=== PATIENT | female | born 1995 | race Caucasian/White ===

== ENCOUNTER 2019-05-05 17:38 | Inpatient (IN) | payer OTHER ==
[2019-05-05] VITALS (20 sets, daily range): BP systolic 99–138; BP diastolic 52–118
[~2019-05-05] VITALS: Ht 172.7 cm; Wt 98.9 kg
[2019-05-05] MEDS ORDERED: VALT500T PO (17:53)
[2019-05-05] MEDS ORDERED: PRENTAB9 PO (17:53)
[2019-05-05] MEDS ORDERED: LACTATED RINGER'S 1000 ML IV PRN ×2 (18:15→22:45)
[2019-05-05] MEDS ORDERED: LR 1,000 ML IV SCH (18:15)
[2019-05-05] MEDS ORDERED: OXYTOCIN DRIP 30 UNITS in APPROPRIATE DILUENT 1 EA IV SCH (18:30)
--- NOTE | 2019-05-05 18:39 | HPEPDOC ---
Obstetrical History & Physical General Date of Admission May 05, 2019 at 17:38 History of Present Illness 24yo at 41w0d by 8wk US, presents for scheduled IOL for post-dates. Feel s well overall without complaints. Denies ctx, vb, lof, urinary/bowel symptom, abd pain, SOB, fevers. +FM. Chief Complaint: Induction of labor Information Provided By: Patient Age: 24 : 2 Term: 1 Pre-term: 0 Abortions: 0 Livin Care Care: Good Care Dating Final EDC: Apr 28, 2019 Final EDC for Daily Update: Apr 28, 2019 Final EDC by: 1st trimester (US) Estimated Date of Confinement: Apr 28, 2019 Antepartum Course Diagnos(e)s Short-interval Obesity Hx genital HSV Height (inches): 68 Pre- weight (lbs.): 167 Admission Weight (lbs.): 216 Change in Weight (lbs.): 49 Past Medical History Past Obstetrical History : Past Obstetrical History: Multigravida Date of Delivery: Mar 05, 2018 Gestation: 39 Type of Delivery: Spontaneous Vaginal Del. 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) Past Medical History Medical History Denies Surgical History: Denies/None Family History Significant Family History: No pertinent family hx Social History Marital Status: Family situation: Spouse/partner home Psychosocial History: No pertinent psych hx * Smoker: non-smoker Alcohol: Denies Drugs: denies Imunizations Tdap status: current Influenza Status: current Allergies Coded Allergies: No Known Allergies (Verified Allergy, Unknown, 05/05/19) Medications Scheduled No.137/Iron/Folic Acd ( Vitamin Tablet) 1 Each Tablet, 1 TAB PO DAILY Valacyclovir HCl (Valtrex) 500 Mg Tablet, 500 MG PO DAILY Physical Examination Physical Examination GENERAL: Alert and oriented times three. BREAST: . ABDOMEN: Gravid and non-tender to touch. FETUS: Is vertex VTX by sterile vaginal examination (SVE) and US. EXTREMITIES: +1 pedal edema bilaterally. SPEC: NEFG, no HSV lesions present Laboratory Data [facility] Laboratory Tests 2 05/05/19 17:55: Serology Scanned Report Hepatitis B Testing Pertinent Laboratoy Data Blood Type: A+ RBC Antibody Screen: Negative HIV: Negative Hepatitis B: Negative Hepatitis C: Unknown Rapid Plasma Reagin: Nonreactive Rubella: Immune Varicella: Immune Chlamydia/Gonorrhea: Negative Group B Streptococcus: Negative Quad Screen Test: Declined Cystic Fibrosis: Declined Glucose Tolerance Test: 125 Anatomy Ultrasound Ultrasound Date: Dec 11, 2018 Placenta Location: Anterior Normal Anatomy: Yes Placenta Previa: No Estimated Weight (grams): 346 Steroid Therapy Steroid Therapy: No Vaginal Examination Dilation: 3 cm Effacement: 50% Station: -3 Cervical Consistency: Medium Cervical Position: Middle Presentation: Cephalic presentation Position: Vertex (occiput) Assessment Heart Rate (FHR): 140 Variability: Moderate Accelerations: Positive Decelerations: None Tocometer Contractions: Yes Frequency: irregular Duration: less than 60 seconds Strength: palpated as mild Multi-drug resistant Organism: No history of MDRO Assessment/Plan Assessment Toma is a 24-year-old at 41+0 weeks by 8-week ultrasound here for IOL for LTG. PNC c/b obesity and short interval . Pelvis proven to 3900g, EFW 4000g. PMH/PSH non-contrib. NST reactive with irreg contractions. Vitals wnl, benign physical exam and no HSV lesions seen on speculum exam. SCE 3/50/-3. Cook catheter with 60cc placed. Plan Admit and orient. 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 Diet: clear liquids. Group B Streptococcus (GBS) negative. Labs and intravenous (IV) per unit protocol. Counseled on Pitocin and induction of labor (IOL). IOL to be started with FB and pitocin. Lactated Ringers (LR): at 125 mL/hr. Anticipate normal spontaneous delivery (). MD ALMA Sams TONI M. MD May 05, 2019 18:39
[2019-05-05 18:52] LABS: BASO % 0.1 % (0.0-1.0); EOS % 0.3 % (0.0-3.0); HEMOGLOBIN 12.7 g/dl (12.0-15.5); LYMPH # 2.1 10^3/uL (1.5-6.5); LYMPH % 21.9 % (24.0-44.0); MEAN CORPUSCULAR HEMOGLOBIN 32.5 pg (27.0-33.0); MEAN CORPUSCULAR HGB CONC 34.3 g/dl (32.0-36.5); MEAN CORPUSCULAR VOLUME 94.6 fl (80.0-96.0); MONO # 0.6 10^3/uL (0.0-0.8); MONO % 6.4 % (0.0-5.0); NEUTROPHILS # 6.9 10^3/uL (1.8-7.7); NEUTROPHILS % 70.9 % (36.0-66.0); PLATELET COUNT, AUTOMATED 264 10^3/uL (150-450); RED BLOOD COUNT 3.91 10^6/uL (4.00-5.40); WHITE BLOOD COUNT 9.7 10^3/uL (4.0-10.0)
[2019-05-05] MEDS ORDERED: FENTANYL 2MCG/ML ROPIVACAINE 0.2% IN 0.9% NACL 100ML IVBAG As Ordered ONE (21:38)
[2019-05-05] MEDS ORDERED: REFRIGERATOR IV KEYS XX PRN (22:45)
[2019-05-05] MEDS ORDERED: ONDANSETRON 4MG/2ML VIAL (J2405) IV PRN (22:45)
[2019-05-05] MEDS ORDERED: ePHEDrine SULFATE 25 MG/5 ML(5MG/ML) SYRINGE IV PRN (22:45)
[2019-05-05] MEDS ORDERED: EPIDURAL COMMENT XX SCH (22:45)
[2019-05-05] MEDS ORDERED: NALOXONE INJ 0.4 MG/1 ML VIAL (J2310) IV PRN (22:45)
[2019-05-05] MEDS ORDERED: diphenhydrAMINE INJ 50MG/ML VIAL (J1200) IV PRN (22:45)
[2019-05-05] MEDS ORDERED: EPIDURAL/PCA KEYS XX PRN (22:45)
[2019-05-05] MEDS ORDERED: FENTANYL/ROPIVACAINE/NACL BAG 100 ML EPIDURAL SCH (22:45)
[2019-05-06 00:10] VITALS: BP 126/74
[2019-05-06] MEDS ORDERED: OXYTOCIN DRIP 30 UNITS in APPROPRIATE DILUENT 1 EA IV SCH (00:38)
[2019-05-06 00:45] VITALS: BP 110/58
[2019-05-06] MEDS ORDERED: MEASLES,MUMPS,RUBELLA VACCINE INJ (MMR-II) (90707) SC SCH (00:45)
[2019-05-06] MEDS ORDERED: ANUSOL HC CREAM 30GM TOP PRN (00:45)
[2019-05-06] MEDS ORDERED: METHYLERGONOVINE MALEATE 0.2 MG TAB PO PRN (00:45)
[2019-05-06] MEDS ORDERED: ACETAMINOPHEN TAB 650MG DOSE (2X325MG) PO PRN (00:45)
[2019-05-06] MEDS ORDERED: DIBUCAINE 1% OINTMENT 30GM TOP PRN (00:45)
[2019-05-06] MEDS ORDERED: IBUPROFEN 600 MG TAB PO PRN (00:45)
[2019-05-06] MEDS ORDERED: RHOGAM 300 MCG (1500 IU) INJ (J2790) IM SCH (00:45)
[2019-05-06] MEDS ORDERED: DOCUSATE SODIUM 100 MG CAP PO PRN (00:45)
[2019-05-06 00:59] VITALS: BP 99/58
[2019-05-06 01:00] LABS: CORD GAS HCO3 V 21.2 MEQ/L; CORD GAS O2 SAT V 76.1 %; CORD GAS PCO2 V 39.3 mmHg; CORD GAS PH V 7.35 UNITS; CORD GAS PO2 V 34.5 mmHg; CORD GAS SBC V 20.7 MEQ/L; CORD GAS TCO2 V 22.4 MEQ/L
[2019-05-06 01:01] LABS: CORD GAS ABE A -2.8; CORD GAS HCO3 A 24.4 MEQ/L; CORD GAS O2 SAT A 27.1 %; CORD GAS PCO2 A 52.3 mmHg; CORD GAS PH A 7.286 UNITS; CORD GAS PO2 A 15.8 mmHg; CORD GAS SBC A 20.6 MEQ/L
[2019-05-06] MEDS: IBUPROFEN 800 MG TAB PO PRN ×2 (01:10→17:15)
[2019-05-06] MEDS: ACETAMINOPHEN 500 MG TAB PO PRN (01:10)
[2019-05-06 01:14] VITALS: BP 98/56
[2019-05-06 05:30] VITALS: BP 111/63
[2019-05-06] MEDS: PRENATAL VITAMINS CHEWABLE TABLET PO SCH (07:38)
[2019-05-06] MEDS ORDERED: SODIUM CHLORIDE 0.9% INJ 10 ML SYR IV PRN (10:30)
[2019-05-06 18:00] VITALS: BP 112/62
--- NOTE | 2019-05-06 21:29 | DN ---
DATE: 05/06/2019 Toma is a 24-year-old female who was admitted at 40 weeks gestation. She progressed to fully dilated after Mckeon bulb artificial rupture of membranes and Pitocin and delivered a live female in left occiput anterior position over an intact perineum, score 9 and 9, weight 8 pounds 6 ounces. Placenta delivered spontaneously intact. Three-vessel cord. Perineum, vagina and cervix inspected. No laceration noted. Estimated blood loss 300 mL. Both mother and baby in stable condition.
[2019-05-07 06:21] VITALS: BP 103/55
[2019-05-07] MEDS: PRENATAL VITAMINS CHEWABLE TABLET PO SCH (08:12)
[2019-05-07] MEDS ORDERED: PROC1CRE5 TOP (09:33)
[2019-05-07] MEDS ORDERED: ACET-683 PO (09:33)
[2019-05-07] MEDS ORDERED: IBUP80TA PO (09:33)
[2019-05-07] MEDS ORDERED: COLA100C5 PO (09:33)
[2019-05-07] MEDS ORDERED: DIBU10OI TOP (09:33)
[2019-05-07] MEDS: ACETAMINOPHEN 500 MG TAB PO PRN (10:17)
--- NOTE | 2019-05-07 19:17 | DSES ---
DATE OF ADMISSION: 05/05/2019 DATE OF DISCHARGE: 05/07/2019 A 24-year-old 3, now para 2 admitted for induction of labor at 41 weeks of gestation. She had a spontaneous vaginal delivery of a live female infant weighing 8 pounds, 6 ounces, scores of 9 and 9 at one and five minutes respectively. Arterial pH 7.28, base excess -2.8, venous pH 7.35, base excess -4.0. Admitting hemoglobin was 12.7, hematocrit 37.0, and platelets were 264. On discharge, we discussed phlebitis, cystitis, mastitis, endometritis and cellulitis, diet, exercise, pain management, perineal, breast and wound care. She was given medications for her home and she is to make a six-week checkup. On discharge, her blood pressure 103/55, respirations 16, pulse 62, temperature 97.3. In summary, we have a late-term gestation, delivered a live female , discharged improved.
== END 2019-05-07 11:45 | disposition home or self-care (01) | DRG 807 ==
LOC: M LDI 17:38 → M OBS 05-06 03:12
PROVIDERS: ADMIT General Practice; ATTEND Obstetrics & Gynecology
PROC: 10E0XZZ Delivery of Products of Conception, External Approach (ICD-10-PCS; principal; 2019-05-06)
PROC: 3E033VJ Introduction of Other Hormone into Peripheral Vein, Percutaneous Approach (ICD-10-PCS; 2019-05-06)
DX: O48.0 Post-term pregnancy (principal); Z37.0 Single live birth; Z3A.41 41 weeks gestation of pregnancy; O99.214 Obesity complicating childbirth; E66.9 Obesity, unspecified